=== PATIENT | male | born 1965 | race Caucasian/White ===

== ENCOUNTER 2018-04-20 11:50 | Emergency (ER) | payer MEDICAID, OTHER ==
[2018-04-20 12:37] VITALS: BP 128/86; PULSE 96; RESP 16; TEMP 97.6; O2SAT 99
== END 2018-04-20 12:45 | disposition home or self-care (01) | DRG 159 ==
LOC: ED 11:50
DX: K08.89 Other specified disorders of teeth and supporting structures (principal)
CPT/HCPCS: 99282